=== PATIENT | female | born 1985 | race Caucasian/White ===

== ENCOUNTER 2019-11-28 02:42 | Emergency (ER) | payer OTHER ==
[~2019-11-28] VITALS: Ht 160 cm; Wt 94.1 kg
[2019-11-28 02:44] VITALS: BP 115/75; TEMP 99.6
[2019-11-28 02:59] LABS: HEMATOCRIT 38.4 % (37.0-47.0); MEAN CELL VOLUME 92 fl (80.0-100.0); MEAN CORPUSCULAR HEMOGLOBIN 31 pg (27.0-31.0); MEAN CORPUSCULAR HGB CONC 34 g/dl (33.0-37.0); MEAN PLATELET VOLUME 8.8 fl (7.4-10.4); PLATELET COUNT 318 K/mm3 (130-400); RED BLOOD COUNT 4.17 M/mm3 (4.10-5.30); REDCELL DISTRIBUTION WIDTH-CV 11.6 % (11.5-14.5)
[2019-11-28 03:09] LABS: ALBUMIN 4.2 gm/dL (3.5-5.0); BILIRUBIN,TOTAL 0.4 mg/dL (0.0-1.0); C-REACTIVE PROTEIN 1.3 mg/dL (0.0-0.9); CALCIUM 9.3 mg/dL (8.4-10.2); CREATININE, serum 0.86 (0.52-1.25); POTASSIUM 3.9 mmol/L (3.4-5.0); TOTAL PROTEIN 7.4 gm/dL (6.4-8.2)
[2019-11-28 03:20] LABS: EOSINOPHIL 3 % (0-4); LYMPHOCYTE 27 % (20.0-51.0); NEUTROPHILS 65 % (42.0-75.2); PLATELET ESTIMATE NORMAL (NORMAL)
[2019-11-28 03:53] LABS: COLLECTION METHOD CLEAN CATCH
[2019-11-28 03:59] LABS: MUCOUS Present /lpf; PH 5 (5-8); SQUAMOUS EPITHELIAL 0-2 /hpf; URINE APPEARANCE Clear; URINE BACTERIA None Seen /hpf; URINE BILIRUBIN Negative (NEGATIVE); URINE BLOOD 2+ (NEGATIVE); URINE COLOR Yellow; URINE GLUCOSE Negative (NEGATIVE); URINE KETONE Negative (NEGATIVE); URINE LEUKOCYTE ESTERASE Negative (NEGATIVE); URINE NITRATE Negative (NEGATIVE); URINE PROTEIN(semi-quant) Negative (NEGATIVE); URINE RBC 20-50 /hpf; URINE UROBILINOGEN Negative (NEGATIVE)
[2019-11-28 06:04] VITALS: PULSE 77
== END 2019-11-28 06:04 | disposition home or self-care (01) ==
LOC: COL.ER 02:42
PROVIDERS: Physician Assistant
DX: N13.2 Hydronephrosis with renal and ureteral calculous obstruction (principal); Z32.02 Encounter for pregnancy test, result negative
CPT/HCPCS: J1170; J1885; J2405; J2765; J3010; J7030

== ENCOUNTER → 2020-02-05 | Outpatient (CLI) | payer OTHER | LOC: BHSO 10:57 | DX: F31.81 Bipolar II disorder (principal) ==

== ENCOUNTER → 2020-02-09 | Outpatient (CLI) | payer OTHER | LOC: BHSO 13:00 | DX: F31.81 Bipolar II disorder (principal) ==

== ENCOUNTER → 2020-02-12 | Outpatient (CLI) | payer OTHER | LOC: BHSO 09:03 | DX: F31.81 Bipolar II disorder (principal) ==

== ENCOUNTER → 2020-03-06 | Outpatient (CLI) | payer OTHER | LOC: BHSO 09:43 | DX: F31.81 Bipolar II disorder (principal) | CPT/HCPCS: G0463 ==